=== PATIENT | female | born 1995 | race African-American/Black ===

== ENCOUNTER 2017-09-22 19:10 | Emergency (ER) | payer SELFPAY ==
[~2017-09-22] VITALS: Ht 162.6 cm; Wt 59.0 kg
[2017-09-22 19:11] VITALS: BP 119/67; PULSE 78; RESP 16; TEMP 99.7; O2SAT 99
[2017-09-22] MEDS ORDERED: IBUPROFEN 800 MG TAB PO ONE (20:15)
[2017-09-22] MEDS ORDERED: SODIUM CHLORIDE 0.9% FLUSH 10 ML FLUSH IVF PRN (20:15)
--- NOTE | 2017-09-22 20:29 | PD ---
HPI Chief Complaint: Cold / Flu Symptoms Time Seen by Provider: 19:58 Travel History International Travel<30 days: No Contact w/Intl Traveler<30days: No Traveled to known affect area: No History of Present Illness HPI Patient is a 22-year-old female presenting to emergency for evaluation of body aches, chills, sore throat, cough. Patient states her symptoms started Saturday, getting progressively worse prompting her visit to the emergency department. She reports taking NyQuil last night and this morning with no significant improvement. She denies any abdominal pain, nausea, vomiting, chest pain, shortness of breath. Symptoms are moderate in nature. Patient reports tobacco use. [facility] Past Medical History Medical History: Denies Significant Hx Diminished Hearing: No Influenza Vaccination: Yes ?: Not LMP: 09/20/17 Past Surgical History Surgical History: No Previous Surgery Social History Alcohol Use: No Tobacco Use: No Substance Use: Yes (WEED) Allergies-Medications (Allergen,Severity, Reaction): Coded Allergies: No Known Allergies (Unverified , 09/22/17) Review of Systems Except as stated in HPI: all other systems reviewed are Neg General / Constitutional: Positive: Fever HENT: Positive: Sore Throat, Congestion Respiratory: Positive: Cough, No: Shortness of Breath, Wheezing Gastrointestinal: No: Nausea, Abdominal Pain Musculoskeletal: Positive: Myalgias Physical Exam Narrative GENERAL: Well-developed, well-nourished, alert female. Presenting in no acute distress. SKIN: Warm and dry. HEAD: Atraumatic. Normocephalic. EYES: Pupils equal and round. No scleral icterus. No injection or drainage. ENT: No nasal bleeding or discharge. Mucous membranes pink and moist. Posterior pharynx cobblestone appearance NECK: Trachea midline. No JVD. CARDIOVASCULAR: Regular rate and rhythm. RESPIRATORY: No accessory muscle use. Clear to auscultation. Breath sounds equal bilaterally. GASTROINTESTINAL: Abdomen soft, non-tender, nondistended. Hepatic and splenic margins not palpable. MUSCULOSKELETAL: Extremities without clubbing, cyanosis, or edema. No obvious deformities. NEUROLOGICAL: Awake and alert. No obvious cranial nerve deficits. Motor grossly within normal limits. Five out of 5 muscle strength in the arms and legs. Normal speech. PSYCHIATRIC: Appropriate mood and affect; insight and judgment normal. Data Data Last Documented VS Vital Signs Date Time Temp Pulse Resp B/P (MAP) Pulse Ox O2 Delivery O2 Flow Rate FiO2 09/22/17 19:11 99.7 78 16 119/67 (84) 99 Room Air Orders Orders Group A Rapid Strep Screen (09/22/17 20:03) Influenzae A/B Antigen (09/22/17 20:03) Oximetry (09/22/17 20:03) Ibuprofen (Motrin) (09/22/17 20:15) Sodium Chloride 0.9% Flush (Ns Flush) (09/22/17 20:15) Strep Culture (Group A) (09/22/17 20:05) MDM Medical Decision Making Medical Screen Exam Complete: Yes Emergency Medical Condition: Yes Interpretation(s) Vital Signs Date Time Temp Pulse Resp B/P (MAP) Pulse Ox O2 Delivery O2 Flow Rate FiO2 09/22/17 19:11 99.7 78 16 119/67 (84) 99 Room Air Differential Diagnosis Influenza versus strep versus viral syndrome versus bronchitis versus other Narrative Course Patient is a 22-year-old female presenting with cold and flulike symptoms. Strep and influenza are pending. Patient has a low-grade fever on arrival. She was given ibuprofen 1 dose. Strep screen is negative, patient is positive for influenza B. She'll be started on Tamiflu and given prescription for ibuprofen 800 mg. Patient is encouraged to maintain adequate fluid intake, rest, avoid crowds until she is fever free for 24 hours. She is encouraged to return to emergency department for any new or worsening symptoms. Patient verbalized understanding of instructions. Patient stable for discharge. Diagnosis Primary Impression: Influenza B Referrals: Primary Care Physician Patient Instructions: General Instructions, Influenza (ED) Additional Instructions: Rest, maintain adequate fluid intake Take ibuprofen as needed and as directed for body aches and fevers Take Tamiflu as directed Return to emergency department for any new or worsening symptoms Med/Other Pt SpecificInfo: Prescription(s) given Scripts Oseltamivir (Tamiflu) 75 Mg Cap 75 MG PO BID for Mgmt Viral Infection for 5 Days, #10 CAP 0 Refills Prov: Verna Smiley 09/22/17 Ibuprofen (Ibuprofen) 800 Mg Tab 800 MG PO Q6HR Y for PAIN, #40 TAB 0 Refills Prov: Verna Smiley 09/22/17 Disposition: 01 DISCHARGE HOME Condition: Stable Verna Smiley Sep 22, 2017 20:29
[2017-09-22] MEDS ORDERED: OSEL75 PO (20:51)
[2017-09-22] MEDS ORDERED: IBUP1TAB7 PO (20:51)
[2017-09-22 20:53] VITALS: O2SAT 96
[2017-09-22 21:01] VITALS: TEMP 99.6
== END 2017-09-22 21:13 | disposition home or self-care (01) ==
LOC: NEPD 19:10
DX: J10.1 Influenza due to other identified influenza virus with other respiratory manifestations (principal); Z72.0 Tobacco use
CPT/HCPCS: 87081; 87804; 87880; 99283

== ENCOUNTER 2017-10-31 12:45 | Emergency (ER) | payer MEDICAID ==
[~2017-10-31] VITALS: Ht 162.6 cm; Wt 60.0 kg
[~2017-10-31 12:45] MED LIST: IBUP1TAB7 PO; OSEL75 PO
[2017-10-31 12:47] VITALS: BP 140/94; PULSE 73; RESP 16; TEMP 98.3; O2SAT 100
--- NOTE | 2017-10-31 12:52 | PD ---
HPI Chief Complaint: Abdominal Pain Time Seen by Provider: 12:52 Travel History International Travel<30 days: No Contact w/Intl Traveler<30days: No Traveled to known affect area: No History of Present Illness HPI 22-year-old female presents emergency department with worsening lower abdominal pain with yellow discharge over the past 24-48 hours. Patient states she recently had a heavy period last week ending on Saturday, and since that time has had ongoing lower abdominal discomfort worse in the last 24 hours. She had some yellowish drainage for the last 24 hours as well. Patient denies fever, chills, nausea, vomiting, diarrhea, or urinary symptoms. Patient is sexually active last reported encounter was 2 days ago. Patient denies flank pain. Patient denies rash. Patient denies . No history of STDs in the past. She has no known drug allergies. PFSH Past Medical History Diminished Hearing: No ?: Not LMP: 10/27/17 Social History Alcohol Use: No Tobacco Use: No Substance Use: Yes (WEED) Allergies-Medications (Allergen,Severity, Reaction): Coded Allergies: No Known Allergies (Unverified , 10/31/17) Reported Meds & Prescriptions Reported Meds & Active Scripts Active No Active Prescriptions or Reported Medications Review of Systems Except as stated in HPI: all other systems reviewed are Neg General / Constitutional: No: Fever, Chills Eyes: No: Visual changes HENT: No: Headaches Cardiovascular: No: Chest Pain or Discomfort Respiratory: No: Shortness of Breath Gastrointestinal: No: Abdominal Pain Genitourinary: Positive: Pelvic Pain, Discharge, No: Urgency, Frequency, Dysuria, Nocturia, Hematuria, Decreased Urinary Output, Hesitancy, Dribbling, Incontinence, Vaginal Bleeding Musculoskeletal: No: Pain Skin: No Rash Neurologic: No: Weakness Psychiatric: No: Depression Endocrine: No: Polydipsia Hematologic/Lymphatic: No: Easy Bruising Physical Exam Narrative GENERAL: Patient appears in moderate distress. SKIN: Warm and dry. Normal color. Normal turgor. No rash. HEAD: Atraumatic. Normocephalic. EYES: Pupils equal and round. No scleral icterus. No injection or drainage. ENT: No nasal bleeding or discharge. Mucous membranes pink and moist. Pharynx is clear. Airways patent NECK: Trachea midline. Supple nontender. CARDIOVASCULAR: Regular rate and rhythm. RESPIRATORY: No accessory muscle use. Clear to auscultation. Breath sounds equal bilaterally. GASTROINTESTINAL: Abdomen soft, moderate suprapubic tenderness, nondistended. No CVA tenderness. Hepatic and splenic margins not palpable. PELVIC: Pelvic exam performed with nursing staff as vascular ultrasound technician, shows yellowish- green discharge. Mild pain with cervical motion. No friable tissue noted. MUSCULOSKELETAL: Extremities without clubbing, cyanosis, or edema. No obvious deformities. NEUROLOGICAL: Awake and alert. No obvious cranial nerve deficits. Motor grossly within normal limits. Five out of 5 muscle strength in the arms and legs. Normal speech. PSYCHIATRIC: Appropriate mood and affect; insight and judgment normal. Data Data Last Documented VS Vital Signs Date Time Temp Pulse Resp B/P (MAP) Pulse Ox O2 Delivery O2 Flow Rate FiO2 10/31/17 12:47 98.3 73 16 140/94 (109) 100 Orders Orders Complete Blood Count With Diff (10/31/17 12:53) Comprehensive Metabolic Panel (10/31/17 12:53) Gc And Chlamydia Pcr (10/31/17 12:53) Wet Prep Profile (10/31/17 12:53) Urinalysis - C+S If Indicated (10/31/17 12:53) Iv Access Insert/Monitor (10/31/17 12:53) Ecg Monitoring (10/31/17 12:53) Sodium Chloride 0.9% Flush (Ns Flush) (10/31/17 13:00) Sodium Chlor 0.9% 1000 Ml Inj (Ns 1000 M (10/31/17 12:53) Ondansetron Inj (Zofran Inj) (10/31/17 13:00) Ed Urine Pregnancytest Poc (10/31/17 12:53) Ketorolac Inj (Toradol Inj) (10/31/17 13:00) Morphine Inj (Morphine Inj) (10/31/17 13:45) Morphine Inj (Morphine Inj) (10/31/17 13:45) Ceftriaxone Inj (Rocephin Inj) (10/31/17 14:45) Azithromycin (Zithromax) (10/31/17 14:45) Labs Laboratory Tests Test 10/31/17 13:05 10/31/17 14:34 White Blood Count 12.7 TH/MM3 Red Blood Count 4.00 MIL/MM3 Hemoglobin 11.3 GM/DL Hematocrit 35.0 % Mean Corpuscular Volume 87.6 FL Mean Corpuscular Hemoglobin 28.3 PG Mean Corpuscular Hemoglobin Concent 32.3 % Red Cell Distribution Width 14.7 % Platelet Count 421 TH/MM3 Mean Platelet Volume 8.3 FL Neutrophils (%) (Auto) 80.1 % Lymphocytes (%) (Auto) 11.6 % Monocytes (%) (Auto) 5.8 % Eosinophils (%) (Auto) 1.8 % Basophils (%) (Auto) 0.7 % Neutrophils # (Auto) 10.2 TH/MM3 Lymphocytes # (Auto) 1.5 TH/MM3 Monocytes # (Auto) 0.7 TH/MM3 Eosinophils # (Auto) 0.2 TH/MM3 Basophils # (Auto) 0.1 TH/MM3 CBC Comment DIFF FINAL Differential Comment Urine Color YELLOW Urine Turbidity CLEAR Urine pH 5.5 Urine Specific Witt 1.019 Urine Protein NEG mg/dL Urine Glucose (UA) NEG mg/dL Urine Ketones NEG mg/dL Urine Occult Blood NEG Urine Nitrite NEG Urine Bilirubin NEG Urine Urobilinogen LESS THAN 2.0 MG/DL Urine Leukocyte Esterase SMALL Urine RBC 1 /hpf Urine WBC 1 /hpf Urine Squamous Epithelial Cells 5 /hpf Urine Mucus FEW /lpf Microscopic Urinalysis Comment CULT NOT INDICATED Blood Urea Nitrogen 14 MG/DL Creatinine 0.91 MG/DL Random Glucose 74 MG/DL Total Protein 7.6 GM/DL Albumin 3.7 GM/DL Calcium Level 8.5 MG/DL Alkaline Phosphatase 53 U/L Aspartate Amino Transf (AST/SGOT) 19 U/L Alanine Aminotransferase (ALT/SGPT) 15 U/L Total Bilirubin 0.4 MG/DL Sodium Level 143 MEQ/L Potassium Level 3.9 MEQ/L Chloride Level 109 MEQ/L Carbon Dioxide Level 25.1 MEQ/L Anion Gap 9 MEQ/L Estimat Glomerular Filtration Rate 95 ML/MIN Clue Cells (Wet Prep) NONE SEEN Vaginal Trichomonas (Wet Prep) NONE SEEN Vaginal Yeast (Wet Prep) NONE SEEN MDM Medical Decision Making Medical Screen Exam Complete: Yes Emergency Medical Condition: Yes Differential Diagnosis Lower abdominal pain. Pelvic inflammatory disease. STD. Bacterial vaginosis. Urinary tract infection. Ectopic . Narrative Course Patient is uncomfortable but medically stable at time of exam. Labs ordered including CBC, CMP, urinalysis, urine , wet prep, and urine GC chlamydia. IV access is obtained and the patient is given 30 mg Toradol IV as well as 4 mg Zofran IV. Patient is given 1000 mL normal saline bolus. CBC shows slight leukocytosis of 12.7. Chemistries are unremarkable. Urinalysis shows small leukocyte esterase, but no signs for culture. Urine GC chlamydia is pending. Wet prep shows no clue cells, no vaginal Trichomonas, or yeast. Urine GC chlamydia is pending. Patient was treated with Rocephin 1000 mg IV, 1200 mg azithromycin p.o. Patient is given ibuprofen 800 mg 3 times daily for pain #30. Patient [facility] with [facility]. Patient should refrain from intercourse for the next week. Patient can return if symptoms worsen as needed. Diagnosis Primary Impression: Vaginal discharge Referrals: [facility] Patient Instructions: Chlamydia (ED), General Instructions, Gonorrhea (ED) Additional Instructions: CBC shows slight leukocytosis of 12.7. Chemistries are unremarkable. Urinalysis shows small leukocyte esterase, but no signs for culture. Urine GC chlamydia is pending. Wet prep shows no clue cells, no vaginal Trichomonas, or yeast. Urine GC chlamydia is pending. Patient was treated with Rocephin 1000 mg IV, 1200 mg azithromycin p.o. Patient is given ibuprofen 800 mg 3 times daily for pain #30. Patient should follow-up with the women[facility] center. Patient should refrain from intercourse for the next week. Patient can return if symptoms worsen as needed. Scripts No Active Prescriptions or Reported Meds Disposition: DISCHARGE HOME Condition: Stable Edinson Rojo Oct 31, 2017 12:52
[2017-10-31] MEDS ORDERED: SODIUM CHLOR 0.9% 1000 ML INJ 1,000 ML IV ONE (12:53)
[2017-10-31] MEDS ORDERED: KETOROLAC TROMETHAMINE 30 MG/ML (IVP) VIAL IV PUSH ONE (13:00)
[2017-10-31] MEDS ORDERED: SODIUM CHLORIDE 0.9% FLUSH 10 ML FLUSH IVF PRN (13:00)
[2017-10-31] MEDS ORDERED: ONDANSETRON HCL 4 MG/2 ML VIAL IVP ONE (13:00)
[2017-10-31 13:23] LABS: AUTOMATED NEUTROPHIL # 10.2 TH/MM3 (1.8-7.7); BASOPHIL # 0.1 TH/MM3 (0-0.2); BASOPHIL % 0.7 % (0.0-2.0); EOSINOPHIL # 0.2 TH/MM3 (0-0.4); EOSINOPHIL % 1.8 % (0.0-4.0); HEMOGLOBIN 11.3 GM/DL (11.6-15.3); LYMPH % 11.6 % (9.0-44.0); LYMPHOCYTE # 1.5 TH/MM3 (1.0-4.8); MEAN CELL VOLUME 87.6 FL (80.0-100.0); MEAN CORPUSCULAR HEMOGLOBIN 28.3 PG (27.0-34.0); MEAN CORPUSCULAR HGB CONC 32.3 % (32.0-36.0); MEAN PLATELET VOLUME 8.3 FL (7.0-11.0); MONO % 5.8 % (0.0-8.0); MONOCYTE # 0.7 TH/MM3 (0-0.9); NEUT % 80.1 % (16.0-70.0); PLATELET COUNT 421 TH/MM3 (150-450); RED CELL DISTRIBUTION WIDTH 14.7 % (11.6-17.2); WHITE BLOOD COUNT 12.7 TH/MM3 (4.0-11.0)
[2017-10-31 13:42] LABS: ALBUMIN 3.7 GM/DL (3.4-5.0); ALT (GPT) 15 U/L (9-42); AST (GOT) 19 U/L (16-38); BICARBONATE 25.1 MEQ/L (21.0-32.0); BLOOD UREA NITROGEN 14 MG/DL (7-18); CALCIUM 8.5 MG/DL (8.5-10.1); CHLORIDE 109 MEQ/L (98-107); CREATININE 0.91 MG/DL (0.50-1.00); GLOMERULAR FILTRATION RATE 95 ML/MIN (>89); GLUCOSE,RANDOM 74 MG/DL (74-106); SODIUM (NA) 143 MEQ/L (136-145)
[2017-10-31 13:44] LABS: BILIRUBIN, URINE NEG (NEG); BLOOD, URINE NEG (NEG); GLUCOSE,URINE NEG (NEG); KETONE, URINE NEG (NEG); MUCUS URINE FEW /lpf (OCC); NITRITE,URINE NEG (NEG); PH, URINE 5.5 (5.0-8.5); SQUAMOUS EPITHELIAL CELL URINE 5 /hpf (0-5); URINE COLOR YELLOW (YELLW/STRAW); URINE LEUKOCYTE ESTERASE SMALL (NEG)
[2017-10-31] MEDS ORDERED: MORPHINE SULFATE 4 MG/ML INJ IV PUSH ONE (13:45)
[2017-10-31] MEDS ORDERED: MORPHINE SULFATE 2 MG/ML INJ IV PUSH ONE (13:45)
[2017-10-31 13:46] LABS: ALKALINE PHOSPHATASE 53 U/L (45-117); TOTAL BILIRUBIN ADULT 0.4 MG/DL (0.2-1.0); TOTAL PROTEIN 7.6 GM/DL (6.4-8.2)
[2017-10-31] MEDS ORDERED: AZITHROMYCIN 600 MG TAB PO ONE (14:45)
[2017-10-31] MEDS ORDERED: cefTRIAXone INJ 1,000 MG in SODIUM CHLORIDE 0.9% INJ 100 ML IV ONE (14:45)
[2017-10-31] MEDS ORDERED: IBUP-232 PO (15:32)
[2017-10-31 15:38] VITALS: BP 129/86
== END 2017-10-31 15:45 | disposition home or self-care (01) ==
LOC: NEPD 12:45
DX: N89.8 Other specified noninflammatory disorders of vagina (principal)
CPT/HCPCS: 80053; 81001; 84703; 85025; 87210; 87491; 87591; 96361; 96365; 96375; 99284; J0696; J1885; J2270; J2405; J7030